=== PATIENT | male | born 1940 | race Caucasian/White ===

== ENCOUNTER → 2016-10-05 | Outpatient (CLI) | payer MEDICARE | LOC: M RAD 08:06 | PROVIDERS: ATTEND Internal Medicine Gastroenterology | DX: R10.11 Right upper quadrant pain (principal); K22.70 Barrett's esophagus without dysplasia ==

== ENCOUNTER → 2017-06-09 | Outpatient (REF) | payer MEDICARE | LOC: M LAB REF 13:40 | DX: R19.7 Diarrhea, unspecified (principal) | CPT/HCPCS: 87507 ==

== ENCOUNTER → 2020-03-19 | Outpatient (CLI) | payer MEDICARE ==
[~2020-03-19] MED LIST: DOXY100C PO; OMEP40CA97 PO; PEPC10TA6 PO; VITA500C3 PO; VITATAB11 PO; ZOFR4TAB14 PO
== END ==
LOC: M LABSMTC 14:03
PROVIDERS: ATTEND Family Medicine
DX: Z20.828 Contact with and (suspected) exposure to other viral communicable diseases (principal)